=== PATIENT | female | born 1985 | race African-American/Black ===

== ENCOUNTER 2016-07-18 13:17 | Emergency (ER) | payer OTHER ==
[~2016-07-18] VITALS: Ht 170.2 cm; Wt 116.5 kg
[~2016-07-18 13:17] MED LIST: OXYC1SOL5 PO
[2016-07-18 13:20] VITALS: BP 140/63; PULSE 84; RESP 16; TEMP 98.2; O2SAT 99
--- NOTE | 2016-07-18 13:25 | PD ---
Physical Exam Time Seen by Provider: 13:22 Narrative 31yo F 8 weeks with vomiting, dizziness, and pelvic pressure since yesterday. Denies vaginal bleeding. LMP . Reports feeling dehydrated w/ dry mouth. Denies fever. VS reviewed. Patient seen in triage. Awaiting bed placement. Data Data Last Documented VS Vital Signs Date Time Temp Pulse Resp B/P Pulse Ox O2 Delivery O2 Flow Rate FiO2 07/18/16 13:20 98.2 84 16 140/63 99 MDM Supervised Visit with MIKAEL: Marce Cota July 18, 2016 13:25
[2016-07-18] MEDS ORDERED: SODIUM CHLOR 0.9% 1000 ML INJ 1,000 ML IV ONE (14:06)
[2016-07-18] MEDS ORDERED: ONDANSETRON HCL 4 MG/2 ML VIAL IVP ONE (14:15)
--- NOTE | 2016-07-18 14:15 | PD ---
HPI Chief Complaint: GI Complaint Time Seen by Provider: 14:08 Travel History International Travel<30 days: No Contact w/Intl Traveler<30days: No Traveled to known affect area: No History of Present Illness LULÚ Is a 31-year-old female estimated 8 weeks based on last menstrual period May 19 who presents for evaluation of nausea, vomiting, lightheadedness, pelvic pain. She reports that the past few days she has been having a decreased appetite. Yesterday she developed some pain/pressure in her pelvic region. Today she has been feeling increasingly nauseous and lightheaded. She had 2 episodes of vomiting. She reports that today at work she was walking and she had a brief syncopal episode in which she passed out on the ground. She is currently feeling dehydrated. She continues to have some pain in her pelvic region which she describes as a pressure sensation, worse in the left lower quadrant. She does endorse a slight clear discharge over the past few days. Denies any dysuria, flank pain, vaginal bleeding, chest pain or shortness of breath, headache, blurred vision. She has no other complaints at this time. [facility] Past Medical History Anemia: Yes Asthma: Yes (Childhood) Heart Rhythm Problems: No Cancer: No Cardiac Catheterization: No Cardiovascular Problems: No High Cholesterol: No Congestive Heart Failure: No Diabetes: No Diminished Hearing: No GERD: Yes Glaucoma: No Hepatitis: No Hiatal Hernia: Yes (GERD) Hypertension: No Reproductive: Yes (DIFFICULTIES CONCEIVING) Respiratory: Yes (ASTHMA YOUTH) Myocardial Infarction: No Thyroid Disease: No ?: LMP: 05/19/16 : 1 Para: 1 Miscarriage: 0 : 0 Ovarian Cysts: Yes Dilation and Curettage (D&C): Yes Past Surgical History Abdominal Surgery: Yes (09/01/08,"laparoscopy discovery of cervix,piece of endometriosis removed") Coronary Artery Bypass Graft: No Gynecologic Surgery: Yes (Removal of uterine polyps 05/27/13. BREAST LUMPECTOMY 2011) Pacemaker: No Other Surgery: Yes (ENDOSCOPY, COLONOSCOPY) Social History Alcohol Use: No Tobacco Use: No Substance Use: No Allergies-Medications (Allergen,Severity, Reaction): Coded Allergies: Demerol (Verified Allergy, Severe, severe teeth chattering, 07/18/16) Uncoded Allergies: NSAIDS (Allergy, Intermediate, Nausea/Vomiting, 06/13/13) Reported Meds & Prescriptions Reported Meds & Active Scripts Active Zofran (Ondansetron HCl) 4 Mg Tab 4 Mg PO Q6HR PRN Macrobid (Nitrofurantoin Monoh/Nitrofur Macro) 100 Mg Cap 100 Mg PO BID 7 Days Reported Plus Iron 29-1 mg ( Vit-Iron Carbonyl) 1 Tab Tab 1 Tab PO DAILY Review of Systems Except as stated in HPI: all other systems reviewed are Neg Physical Exam Narrative GENERAL: Well-developed well-nourished female in no acute distress SKIN: Warm and dry. HEAD: Atraumatic. Normocephalic. EYES: Pupils equal and round. No scleral icterus. No injection or drainage. ENT: No nasal bleeding or discharge. Mucous membranes pink and moist. NECK: Trachea midline. No JVD. CARDIOVASCULAR: Regular rate and rhythm. No murmur appreciated. RESPIRATORY: No accessory muscle use. Clear to auscultation. Breath sounds equal bilaterally. GASTROINTESTINAL: Abdomen soft, Mild tenderness to palpation in the suprapubic/ left lower quadrant without guarding. MUSCULOSKELETAL: No obvious deformities. Pelvic examination performed with presence of a female nurse.: There was some white discharge noted in the vaginal canal. There is a small amount of blood at the level of the cervix, noticed when taking samples for what prep/GC probe. No cervical motion tenderness. Mild suprapubic tenderness to palpation. NEUROLOGICAL: Awake and alert. No obvious cranial nerve deficits. Motor grossly within normal limits. Normal speech. Data Data Last Documented VS Vital Signs Date Time Temp Pulse Resp B/P Pulse Ox O2 Delivery O2 Flow Rate FiO2 07/18/16 14:35 18 07/18/16 14:25 87 136/89 100 Room Air 07/18/16 13:20 98.2 Orders Electrocardiogram (07/18/16 14:06) Basic Metabolic Panel (Bmp) (07/18/16 14:06) Beta Hcg (Quant/Titer) (07/18/16 14:06) Magnesium (Mg) (07/18/16 14:06) Urinalysis - C+S If Indicated (07/18/16 14:06) Blood Glucose (07/18/16 14:06) Ecg Monitoring (07/18/16 14:06) Iv Access Insert/Monitor (07/18/16 14:06) Oximetry (07/18/16 14:06) Ondansetron Inj (Zofran Inj) (07/18/16 14:15) Sodium Chlor 0.9% 1000 Ml Inj (Ns 1000 M (07/18/16 14:06) Gc And Chlamydia Pcr (07/18/16 14:09) Wet Prep Profile (07/18/16 14:09) Ed Poc Ultrasound (07/18/16 14:09) Orthostatic Vital Signs (07/18/16 14:49) Complete Blood Count With Diff (07/18/16 15:08) Complete Rh (07/18/16 15:21) Labs Laboratory Tests Test 07/18/16 07/18/16 07/18/16 14:50 15:10 15:20 Urine Color YELLOW Urine Turbidity HAZY Urine pH 6.0 Urine Specific [place] 1.026 Urine Protein NEG mg/dL Urine Glucose (UA) NEG mg/dL Urine Ketones NEG mg/dL Urine Occult Blood NEG Urine Nitrite NEG Urine Bilirubin NEG Urine Urobilinogen LESS THAN 2.0 MG/DL Urine Leukocyte Esterase TRACE Urine RBC 1 /hpf Urine WBC 2 /hpf Urine Squamous Epithelial 5 /hpf Cells Urine Bacteria RARE /hpf Urine Mucus FEW /lpf Microscopic Urinalysis Comment CULT NOT INDICATED Sodium Level 135 MEQ/L Potassium Level 4.0 MEQ/L Chloride Level 102 MEQ/L Carbon Dioxide Level 25.3 MEQ/L Anion Gap 8 MEQ/L Blood Urea Nitrogen 9 MG/DL Creatinine 0.64 MG/DL Estimat Glomerular Filtration 129 ML/MIN Rate Random Glucose 88 MG/DL Calcium Level 9.3 MG/DL Magnesium Level 2.1 MG/DL Human Chorionic Gonadotropin, 75698 MIU/ML Quant White Blood Count 7.1 TH/MM3 Red Blood Count 4.36 MIL/MM3 Hemoglobin 11.4 GM/DL Hematocrit 35.2 % Mean Corpuscular Volume 80.8 FL Mean Corpuscular Hemoglobin 26.2 PG Mean Corpuscular Hemoglobin 32.4 % Concent Red Cell Distribution Width 16.8 % Platelet Count 276 TH/MM3 Mean Platelet Volume 9.2 FL Neutrophils (%) (Auto) 64.4 % Lymphocytes (%) (Auto) 26.9 % Monocytes (%) (Auto) 7.0 % Eosinophils (%) (Auto) 1.4 % Basophils (%) (Auto) 0.3 % Neutrophils # (Auto) 4.6 TH/MM3 Lymphocytes # (Auto) 1.9 TH/MM3 Monocytes # (Auto) 0.5 TH/MM3 Eosinophils # (Auto) 0.1 TH/MM3 Basophils # (Auto) 0.0 TH/MM3 CBC Comment DIFF FINAL Differential Comment Clue Cells (Wet Prep) NONE SEEN Vaginal Trichomonas (Wet Prep) NONE SEEN Vaginal Yeast (Wet Prep) NONE SEEN Blood Type B POSITIVE Rho(D) Type POSITIVE MDM Medical Decision Making Medical Screen Exam Complete: Yes Emergency Medical Condition: Yes Medical Record Reviewed: Yes Interpretation(s) EKG NSR Orthostatic vital signs: Supine(bp 127/60, hr80) sitting(152/66, hr 81) standing (138/65 hr 82) no dizziness in any position. Urinalysis reveals trace leukocytes, rare bacteria, culture pending CBC BMP Quantitative beta hCG Differential Diagnosis Dehydration, electrolyte abnormality, ectopic , intrauterine , gastroenteritis, hyperemesis gravidarum, cystitis, pelvic inflammatory disease Narrative Course 31-year-old female last missed her period May 19 presents with a few days of decreased appetite, one day of nausea and vomiting, lightheadedness, syncope. She has some pelvic pressure as well. Bedside ultrasound performed by Dr. Wynn reveals an intrauterine estimated 9 weeks gestational age, heart tones 164. Plans for basic lab work, pelvic examination, she'll be given IV fluids and Zofran and reassessed. Pelvic examination revealed some white discharge. There was a small amount of blood at the level of the cervical os and therefore Rh type has been sent. Upon reexamination the patient feels significantly improved. Her nausea is resolved. Her lab work has been reviewed, she is Rh+. She does have a little bit of bacteria in the urine and so she'll be treated with Macrobid for asymptomatic bacteriuria. Discussed signs and symptoms of more to returning to the emergency room, she is stable for discharge and outpatient follow-up in 3 days with her [facility] as scheduled. Procedures EKG Prior to Arrival: Yes Diagnosis Primary Impression: Qualified Code: Z3A.09 - 9 weeks gestation of Additional Impressions: Nausea and vomiting Qualified Code: R11.2 - Nausea and vomiting, intractability of vomiting not specified, unspecified vomiting type Asymptomatic bacteriuria Additional Instructions: Medication as prescribed. Slowly advanced diet as tolerated. Stay well hydrated. Follow-up with [facility] in 3 days as scheduled. Return for any emergent medical conditions. Med/Other Pt SpecificInfo: Prescription(s) given Scripts Ondansetron (Zofran)4 Mg Tab4 Mg PO Q6HR PRN (NAUSEA OR VOMITING) #20 TAB Ref 0 Prov:Ian Wynn MD 07/18/16 Nitrofurantoin Monohydrate Macrocrystals (Macrobid)100 Mg Qqb647 Mg PO BID 7 Days Ref 0 Prov:Ian Wynn MD 07/18/16 Disposition: 01 DISCHARGE HOME Condition: Stable Marco Bermudez July 18, 2016 14:15
[2016-07-18 14:25] VITALS: BP 136/89; PULSE 87; RESP 18; O2SAT 100
[2016-07-18] MEDS ORDERED: PREN29TA PO (14:28)
--- NOTE | 2016-07-18 14:30 | PD ---
Physical Exam Date Seen by Provider: July 18, 2016 Time Seen by Provider: 14:28 Narrative 31-year-old female who is with LMP of May 19, 2016 came to the emergency room with lower abdominal discomfort, nausea, vomiting and syncopal episode. Patient has not seen her OB yet and has not had an ultrasound. She seen by the PA and I'm supervising him. I did a bedside ultrasound to check for the and rule out ectopic . Please refer to my procedure note. Data Data Last Documented VS Vital Signs Date Time Temp Pulse Resp B/P Pulse Ox O2 Delivery O2 Flow Rate FiO2 07/18/16 15:10 80 16 127/60 84 16 152/66 86 18 138/65 07/18/16 14:25 100 Room Air 07/18/16 13:20 98.2 Orders Electrocardiogram (07/18/16 14:06) Basic Metabolic Panel (Bmp) (07/18/16 14:06) Beta Hcg (Quant/Titer) (07/18/16 14:06) Magnesium (Mg) (07/18/16 14:06) Urinalysis - C+S If Indicated (07/18/16 14:06) Blood Glucose (07/18/16 14:06) Ecg Monitoring (07/18/16 14:06) Iv Access Insert/Monitor (07/18/16 14:06) Oximetry (07/18/16 14:06) Ondansetron Inj (Zofran Inj) (07/18/16 14:15) Sodium Chlor 0.9% 1000 Ml Inj (Ns 1000 M (07/18/16 14:06) Gc And Chlamydia Pcr (07/18/16 14:09) Wet Prep Profile (07/18/16 14:09) Ed Poc Ultrasound (07/18/16 14:09) Orthostatic Vital Signs (07/18/16 14:49) Complete Blood Count With Diff (07/18/16 15:08) Complete Rh (07/18/16 15:21) Labs Laboratory Tests Test 07/18/16 07/18/16 07/18/16 14:50 15:10 15:20 Urine Color YELLOW Urine Turbidity HAZY Urine pH 6.0 Urine Specific [place] 1.026 Urine Protein NEG mg/dL Urine Glucose (UA) NEG mg/dL Urine Ketones NEG mg/dL Urine Occult Blood NEG Urine Nitrite NEG Urine Bilirubin NEG Urine Urobilinogen LESS THAN 2.0 MG/DL Urine Leukocyte Esterase TRACE Urine RBC 1 /hpf Urine WBC 2 /hpf Urine Squamous Epithelial 5 /hpf Cells Urine Bacteria RARE /hpf Urine Mucus FEW /lpf Microscopic Urinalysis Comment CULT NOT INDICATED Sodium Level 135 MEQ/L Potassium Level 4.0 MEQ/L Chloride Level 102 MEQ/L Carbon Dioxide Level 25.3 MEQ/L Anion Gap 8 MEQ/L Blood Urea Nitrogen 9 MG/DL Creatinine 0.64 MG/DL Estimat Glomerular Filtration 129 ML/MIN Rate Random Glucose 88 MG/DL Calcium Level 9.3 MG/DL Magnesium Level 2.1 MG/DL Human Chorionic Gonadotropin, 75193 MIU/ML Quant White Blood Count 7.1 TH/MM3 Red Blood Count 4.36 MIL/MM3 Hemoglobin 11.4 GM/DL Hematocrit 35.2 % Mean Corpuscular Volume 80.8 FL Mean Corpuscular Hemoglobin 26.2 PG Mean Corpuscular Hemoglobin 32.4 % Concent Red Cell Distribution Width 16.8 % Platelet Count 276 TH/MM3 Mean Platelet Volume 9.2 FL Neutrophils (%) (Auto) 64.4 % Lymphocytes (%) (Auto) 26.9 % Monocytes (%) (Auto) 7.0 % Eosinophils (%) (Auto) 1.4 % Basophils (%) (Auto) 0.3 % Neutrophils # (Auto) 4.6 TH/MM3 Lymphocytes # (Auto) 1.9 TH/MM3 Monocytes # (Auto) 0.5 TH/MM3 Eosinophils # (Auto) 0.1 TH/MM3 Basophils # (Auto) 0.0 TH/MM3 CBC Comment DIFF FINAL Differential Comment Clue Cells (Wet Prep) NONE SEEN Vaginal Trichomonas (Wet Prep) NONE SEEN Vaginal Yeast (Wet Prep) NONE SEEN Chlamydia trachomatis DNA NOT DETECTED (PCR) Neisseria gonorrhoeae DNA NOT DETECTED (PCR) Blood Type B POSITIVE Rho(D) Type POSITIVE MDM Supervised Visit with MIKAEL: Yes Procedures Procedure Narrative Emergency Department Pelvic ultrasound was performed with patient consent. The curvilinear probe was used in the transverse and sagittal views within the suprapubic region revealing single, live intrauterine . heart rate was 164 bpm. See this measures 9 week by crown-rump length. Scripts Ondansetron (Zofran)4 Mg Tab4 Mg PO Q6HR PRN (NAUSEA OR VOMITING) #20 TAB Ref 0 Prov:Kingsley,Shravanti R. MD 07/18/16 Nitrofurantoin Monohydrate Macrocrystals (Macrobid)100 Mg Hes306 Mg PO BID 7 Days Ref 0 Prov:Ian Wynn MD 07/18/16 Ian Wynn MD July 18, 2016 14:30
[2016-07-18 15:10] VITALS: BP_SYST 127; BP_SYST 138; BP_SYST 152; BP_DIAS 60; BP_DIAS 65; BP_DIAS 66; RESP 16; RESP 18
[2016-07-18 15:10] LABS: BACTERIA, URINE RARE /hpf; BLOOD, URINE NEG (NEG); COMMENT (UR) CULT NOT INDICATED; CULTURE IF INDICATED CULT NOT INDICATED; GLUCOSE,URINE NEG (NEG); KETONE, URINE NEG (NEG); MUCUS URINE FEW /lpf (OCC); NITRITE,URINE NEG (NEG); SQUAMOUS EPITHELIAL CELL URINE 5 /hpf (0-5); URINE COLOR YELLOW (YELLW/STRAW)
[2016-07-18 15:23] LABS: BICARBONATE 25.3 MEQ/L (21.0-32.0); MAGNESIUM 2.1 MG/DL (1.5-2.5)
[2016-07-18 15:33] LABS: AUTOMATED NEUTROPHIL # 4.6 TH/MM3 (1.8-7.7); BASOPHIL % 0.3 % (0.0-2.0); EOSINOPHIL # 0.1 TH/MM3 (0-0.4); EOSINOPHIL % 1.4 % (0.0-4.0); HEMATOCRIT 35.2 % (35.0-46.0); HEMO FLAGS DIFF FINAL; LYMPH % 26.9 % (9.0-44.0); LYMPHOCYTE # 1.9 TH/MM3 (1.0-4.8); MEAN CELL VOLUME 80.8 FL (80.0-100.0); MEAN CORPUSCULAR HEMOGLOBIN 26.2 PG (27.0-34.0); MEAN CORPUSCULAR HGB CONC 32.4 % (32.0-36.0); NEUT % 64.4 % (16.0-70.0); PLATELET COUNT 276 TH/MM3 (150-450); RED BLOOD COUNT 4.36 MIL/MM3 (4.00-5.30); RED CELL DISTRIBUTION WIDTH 16.8 % (11.6-17.2); WHITE BLOOD COUNT 7.1 TH/MM3 (4.0-11.0)
[2016-07-18] MEDS ORDERED: MACR100C2 PO (15:47)
[2016-07-18] MEDS ORDERED: ZOFR4TAB PO (15:47)
[2016-07-18 18:25] LABS: CHLAMYDIA PCR NOT DETECTED (NOT DETECT); NEISSERIA PCR NOT DETECTED (NOT DETECT)
--- NOTE | 2016-07-19 06:00 | EKG ---
Date Performed: 07/18/2016 Time Performed: 14:32:46 PTAGE: 31 years EKG: Sinus rhythm NORMAL ECG PREVIOUS TRACING : 10/11/2009 19.59 Compared to prior tracing no significant change DOCTOR: Rakel Berg Interpretating Date/Time 07/19/2016 05:58:07
== END 2016-07-18 16:27 | disposition home or self-care (01) ==
LOC: NEPD 13:17
DX: O21.0 Mild hyperemesis gravidarum (principal); R82.71 Bacteriuria; Z3A.09 9 weeks gestation of pregnancy
CPT/HCPCS: 80048; 81001; 83735; 84702; 85025; 87210; 87491; 87591; 93005; 96361; 96374; 99284; J2405; J7030

== ENCOUNTER 2016-09-10 16:52 | Emergency (ER) | payer OTHER ==
[~2016-09-10] VITALS: Ht 170.2 cm; Wt 120.0 kg
[~2016-09-10 16:52] MED LIST changes: +MACR100C2 PO; -OXYC1SOL5 PO; +PREN29TA PO; +ZOFR4TAB PO
[2016-09-10 16:53] VITALS: BP 132/58; PULSE 118; RESP 20; TEMP 99.4; O2SAT 99
[2016-09-10] MEDS ORDERED: SODIUM CHLOR 0.9% 1000 ML INJ 1,000 ML IV SCH (17:09)
--- NOTE | 2016-09-10 17:10 | PD ---
HPI Chief Complaint: General Weakness Time Seen by Provider: 17:10 Travel History International Travel<30 days: No Contact w/Intl Traveler<30days: No Traveled to known affect area: No History of Present Illness HPI 31-year-old female who is 16 weeks gestation, followed by Dr. Jameson, presents to the emergency department for evaluation of low back pain and leg pain. She recalls no injury. That she feels weak. Denies any recent illnesses, fever, or chills. Denies any urinary symptoms. No abdominal pain or cramping. No vaginal bleeding or discharge. Patient states however today she has not felt as many flutters from the developing fetus as she usually does. She did try drinking orange juice with no improvement. Patient has no other symptoms to report at this time. PFSH Past Medical History Anemia: Yes Asthma: Yes (Childhood) Heart Rhythm Problems: No Cancer: No Cardiac Catheterization: No Cardiovascular Problems: No High Cholesterol: No Congestive Heart Failure: No Diabetes: No Diminished Hearing: No GERD: Yes Glaucoma: No Hepatitis: No Hiatal Hernia: Yes Heparin Induced Thrombocytopen: No Hypertension: No Medical other: No Reproductive: Yes (DIFFICULTIES CONCEIVING) Respiratory: Yes (ASTHMA YOUTH) Myocardial Infarction: No Thyroid Disease: No Influenza Vaccination: No ?: LMP: 05/19/16 : 4 Para: 2 Miscarriage: 1 : 0 Ovarian Cysts: Yes Dilation and Curettage (D&C): Yes Past Surgical History Abdominal Surgery: Yes (09/01/08,"laparoscopy discovery of cervix,piece of endometriosis removed") Coronary Artery Bypass Graft: No Gynecologic Surgery: Yes (Removal of uterine polyps 05/27/13. BREAST LUMPECTOMY 2011) Pacemaker: No Other Surgery: Yes (ENDOSCOPY, COLONOSCOPY) Family History Family Myocardial Infarction: No Social History Alcohol Use: No Tobacco Use: No Substance Use: No Allergies-Medications (Allergen,Severity, Reaction): Coded Allergies: Demerol (Verified Allergy, Severe, severe teeth chattering, 07/18/16) Uncoded Allergies: NSAIDS (Allergy, Intermediate, Nausea/Vomiting, 06/13/13) Reported Meds & Prescriptions Reported Meds & Active Scripts Active Keflex (Cephalexin) 500 Mg Cap 500 Mg PO Q12H 7 Days Zofran (Ondansetron HCl) 4 Mg Tab 4 Mg PO Q6HR PRN Macrobid (Nitrofurantoin Monoh/Nitrofur Macro) 100 Mg Cap 100 Mg PO BID 7 Days Reported Plus Iron 29-1 mg ( Vit-Iron Carbonyl) 1 Tab Tab 1 Tab PO DAILY Review of Systems Except as stated in HPI: all other systems reviewed are Neg Physical Exam Narrative GENERAL: Well-nourished female patient, in no acute distress SKIN: Focused skin assessment warm/dry. HEAD: Atraumatic. Normocephalic. EYES: Pupils equal and round. No scleral icterus. No injection or drainage. ENT: No nasal bleeding or discharge. Mucous membranes pink and moist. NECK: Trachea midline. No JVD. CARDIOVASCULAR: Regular rate and rhythm. No murmur appreciated. RESPIRATORY: No accessory muscle use. Clear to auscultation. Breath sounds equal bilaterally. GASTROINTESTINAL: Abdomen soft, non-tender, nondistended. Hepatic and splenic margins not palpable. MUSCULOSKELETAL: No obvious deformities. No clubbing. No cyanosis. No edema. No spinal tenderness. NEUROLOGICAL: Awake and alert. No obvious cranial nerve deficits. Motor grossly within normal limits. Normal speech. PSYCHIATRIC: Appropriate mood and affect; insight and judgment normal. Data Data Last Documented VS Vital Signs Date Time Temp Pulse Resp B/P Pulse Ox O2 Delivery O2 Flow Rate FiO2 09/10/16 20:51 88 16 112/58 98 09/10/16 18:20 Room Air 09/10/16 16:53 99.4 Orders Beta Hcg (Quant/Titer) (09/10/16 17:09) Complete Blood Count With Diff (09/10/16 17:09) Comprehensive Metabolic Panel (09/10/16 17:09) Prothrombin Time / Inr (Pt) (09/10/16 17:09) Act Partial Throm Time (Ptt) (09/10/16 17:09) Urinalysis - C+S If Indicated (09/10/16 17:09) Iv Access Insert/Monitor (09/10/16 17:09) Ecg Monitoring (09/10/16 17:09) Oximetry (09/10/16 17:09) Sodium Chlor 0.9% 1000 Ml Inj (Ns 1000 M (09/10/16 17:09) Sodium Chloride 0.9% Flush (Ns Flush) (09/10/16 17:15) Ed Urine Pregnancytest Poc (09/10/16 17:09) Heart Tones (09/10/16 18:31) Sodium Chlor 0.9% 1000 Ml Inj (Ns 1000 M (09/10/16 18:45) Labs Laboratory Tests Test 09/10/16 09/10/16 17:35 17:45 White Blood Count 7.1 TH/MM3 Red Blood Count 4.19 MIL/MM3 Hemoglobin 10.8 GM/DL Hematocrit 34.4 % Mean Corpuscular Volume 82.2 FL Mean Corpuscular Hemoglobin 25.8 PG Mean Corpuscular Hemoglobin 31.4 % Concent Red Cell Distribution Width 15.7 % Platelet Count 223 TH/MM3 Mean Platelet Volume 9.2 FL Neutrophils (%) (Auto) 70.6 % Lymphocytes (%) (Auto) 22.7 % Monocytes (%) (Auto) 5.5 % Eosinophils (%) (Auto) 1.0 % Basophils (%) (Auto) 0.2 % Neutrophils # (Auto) 5.0 TH/MM3 Lymphocytes # (Auto) 1.6 TH/MM3 Monocytes # (Auto) 0.4 TH/MM3 Eosinophils # (Auto) 0.1 TH/MM3 Basophils # (Auto) 0.0 TH/MM3 CBC Comment DIFF FINAL Differential Comment Prothrombin Time 10.5 SEC Prothromb Time International 1.0 RATIO Ratio Activated Partial 28.5 SEC Thromboplast Time Sodium Level 138 MEQ/L Potassium Level 3.4 MEQ/L Chloride Level 104 MEQ/L Carbon Dioxide Level 27.0 MEQ/L Anion Gap 7 MEQ/L Blood Urea Nitrogen 6 MG/DL Creatinine 0.66 MG/DL Estimat Glomerular Filtration 125 ML/MIN Rate Random Glucose 88 MG/DL Calcium Level 9.1 MG/DL Total Bilirubin 0.2 MG/DL Aspartate Amino Transf 7 U/L (AST/SGOT) Alanine Aminotransferase 18 U/L (ALT/SGPT) Alkaline Phosphatase 75 U/L Total Protein 6.8 GM/DL Albumin 2.5 GM/DL Human Chorionic Gonadotropin, 64352 MIU/ML Quant Urine Color YELLOW Urine Turbidity CLEAR Urine pH 6.5 Urine Specific [place] 1.022 Urine Protein TRACE mg/dL Urine Glucose (UA) NEG mg/dL Urine Ketones 10 mg/dL Urine Occult Blood MOD Urine Nitrite NEG Urine Bilirubin NEG Urine Urobilinogen LESS THAN 2.0 MG/DL Urine Leukocyte Esterase NEG Urine RBC /hpf Urine WBC 1 /hpf Urine Squamous Epithelial 2 /hpf Cells Urine Mucus FEW /lpf Microscopic Urinalysis Comment CULT NOT INDICATED MDM Medical Decision Making Medical Screen Exam Complete: Yes Emergency Medical Condition: Yes Medical Record Reviewed: Yes Differential Diagnosis Low back strain versus cystitis versus pyelonephritis versus renal calculi versus electrolyte abnormality Narrative Course 31-year-old female presents to the emergency department for evaluation. Patient appears without distress. Her vital signs are stable. Initially patient is tachycardic however after IV fluid, heart rate normalizes at 88 bpm. CBC is without acute concern. CMP is also without acute concern. Beta hCG is 20,284. Urinalysis is with 10 ketones, moderate occult blood, innumerable RBC, a few mucus. Patient will be treated for hemorrhagic cystitis and this very well could be the cause of her low back pain, although at this point, renal calculi cannot be completely ruled out as we will not be doing a CT exam with normal kidney function identified and no significant CVA tenderness. Bedside ultrasound is performed by my attending physician with an IUP identified , actively moving, and with an active heartbeat. This offered patient some reassurance however we have encouraged her follow up with her primary care provider as well as her [facility]U[facility]. She agrees to return immediately with any acute worsening symptoms. Diagnosis Primary Impression: Low back pain Qualified Code: M54.5 - Bilateral low back pain without sciatica, unspecified chronicity Additional Impressions: Hematuria Qualified Code: Z3A.16 - 16 weeks gestation of Referrals: [place] [facility] Primary Care Physician Patient Instructions: General Instructions, Hematuria (ED), Low Back Strain (ED ) Additional Instructions: Rest Maintain adequate oral hydration Tylenol as directed on the package as needed for pain Follow-up with your JOB RECRUITER Return immediately with any acute worsening of symptoms Med/Other Pt SpecificInfo: Prescription(s) given Scripts Cephalexin (Keflex)500 Mg Syj600 Mg PO Q12H 7 Days Ref 0 Prov:Elza Cordoba 09/10/16 Disposition: 01 DISCHARGE HOME Condition: Stable Elza Cordoba Sep 10, 2016 17:10
[2016-09-10] MEDS ORDERED: SODIUM CHLORIDE 0.9% FLUSH 10 ML FLUSH IV FLUSH PRN (17:15)
[2016-09-10 18:08] LABS: BASOPHIL % 0.2 % (0.0-2.0); EOSINOPHIL # 0.1 TH/MM3 (0-0.4); HEMATOCRIT 34.4 % (35.0-46.0); HEMO FLAGS DIFF FINAL; LYMPH % 22.7 % (9.0-44.0); LYMPHOCYTE # 1.6 TH/MM3 (1.0-4.8); MEAN CELL VOLUME 82.2 FL (80.0-100.0); MEAN CORPUSCULAR HEMOGLOBIN 25.8 PG (27.0-34.0); MEAN CORPUSCULAR HGB CONC 31.4 % (32.0-36.0); MONO % 5.5 % (0.0-8.0); NEUT % 70.6 % (16.0-70.0); PLATELET COUNT 223 TH/MM3 (150-450); RED BLOOD COUNT 4.19 MIL/MM3 (4.00-5.30); RED CELL DISTRIBUTION WIDTH 15.7 % (11.6-17.2); WHITE BLOOD COUNT 7.1 TH/MM3 (4.0-11.0)
[2016-09-10 18:11] LABS: BLOOD, URINE MOD (NEG); COMMENT (UR) CULT NOT INDICATED; CULTURE IF INDICATED CULT NOT INDICATED; GLUCOSE,URINE NEG (NEG); KETONE, URINE 10 mg/dL (NEG); MUCUS URINE FEW /lpf (OCC); NITRITE,URINE NEG (NEG); PH, URINE 6.5 (5.0-8.5); SQUAMOUS EPITHELIAL CELL URINE 2 /hpf (0-5); URINE COLOR YELLOW (YELLW/STRAW)
[2016-09-10 18:14] LABS: APTT (PATIENT) 28.5 SEC (24.3-30.1); PROTHROMBIN TIME - PATIENT 10.5 SEC (9.8-11.6)
[2016-09-10 18:20] VITALS: PULSE 100; PULSE 102; RESP 18; O2SAT 100
[2016-09-10 18:33] LABS: ALT (GPT) 18 U/L (10-53); ANION GAP 7 MEQ/L (5-15); AST (GOT) 7 U/L (15-37); BLOOD UREA NITROGEN 6 MG/DL (7-18); CHLORIDE 104 MEQ/L (98-107); GLOMERULAR FILTRATION RATE 125 ML/MIN (>89); POTASSIUM 3.4 MEQ/L (3.5-5.1); SODIUM (NA) 138 MEQ/L (136-145)
[2016-09-10] MEDS ORDERED: SODIUM CHLOR 0.9% 1000 ML INJ 1,000 ML IV ONE (18:45)
[2016-09-10 18:49] LABS: ALKALINE PHOSPHATASE 75 U/L (45-117); BETA HCG QUANT 20284 MIU/ML (0-5); TOTAL BILIRUBIN ADULT 0.2 MG/DL (0.2-1.0)
[2016-09-10] MEDS ORDERED: CEPH-460 PO (19:22)
[2016-09-10 20:51] VITALS: BP 112/58
== END 2016-09-10 20:52 | disposition home or self-care (01) ==
LOC: NEPC 16:52
DX: O26.892 Other specified pregnancy related conditions, second trimester (principal); M54.5 Low back pain; R31.9 Hematuria, unspecified; Z3A.16 16 weeks gestation of pregnancy
CPT/HCPCS: 80053; 81001; 84702; 84703; 85025; 85610; 85730; 99284; J7030

== ENCOUNTER 2016-10-09 10:34 | Emergency (ER) | payer OTHER ==
[~2016-10-09] VITALS: Ht 170.2 cm; Wt 110.0 kg
[~2016-10-09 10:34] MED LIST changes: +CEPH-460 PO
[2016-10-09 10:37] VITALS: BP 134/90; PULSE 87; RESP 15; TEMP 97.8; O2SAT 100
[2016-10-09 10:54] VITALS: BP 131/60; PULSE 98; RESP 28; O2SAT 100
[2016-10-09 11:54] LABS: AUTOMATED NEUTROPHIL # 4.6 TH/MM3 (1.8-7.7); BASOPHIL % 0.4 % (0.0-2.0); EOSINOPHIL # 0.1 TH/MM3 (0-0.4); HEMO FLAGS DIFF FINAL; LYMPHOCYTE # 2.4 TH/MM3 (1.0-4.8); MEAN CELL VOLUME 83.1 FL (80.0-100.0); MEAN CORPUSCULAR HEMOGLOBIN 26.6 PG (27.0-34.0); MONO % 7.1 % (0.0-8.0); NEUT % 60.5 % (16.0-70.0); PLATELET COUNT 249 TH/MM3 (150-450); RED BLOOD COUNT 4.33 MIL/MM3 (4.00-5.30); RED CELL DISTRIBUTION WIDTH 14.8 % (11.6-17.2); WHITE BLOOD COUNT 7.6 TH/MM3 (4.0-11.0)
[2016-10-09 12:07] LABS: ALKALINE PHOSPHATASE 81 U/L (45-117); TOTAL BILIRUBIN ADULT 0.3 MG/DL (0.2-1.0)
[2016-10-09 12:08] LABS: ALT (GPT) 15 U/L (10-53); ANION GAP 7 MEQ/L (5-15); AST (GOT) 30 U/L (15-37); BICARBONATE 25.6 MEQ/L (21.0-32.0); BLOOD UREA NITROGEN 6 MG/DL (7-18); CHLORIDE 103 MEQ/L (98-107); GLOMERULAR FILTRATION RATE 137 ML/MIN (>89); POTASSIUM 4.4 MEQ/L (3.5-5.1); SODIUM (NA) 136 MEQ/L (136-145)
--- NOTE | 2016-10-09 12:19 | RADRPT ---
EXAM DATE/TIME: 10/09/2016 11:18 [facility] COMPARISON: No previous studies available for comparison. INDICATIONS : Bilateral leg swelling. MEDICAL HISTORY : . Asthma. GERD. SURGICAL HISTORY : Dilation and currettage. Removal uterine polyp. Breast lumpectomy. Endoscopy. Colonoscopy. ENCOUNTER: Initial ACUITY: 3 days PAIN SCORE: 1/10 LOCATION: Bilateral legs. TECHNIQUE: Venous ultrasound of the left and right leg was performed from the inguinal ligament to the proximal calf. Real-time, color Doppler and spectral tracing, compression and augmentation techniques were us ed. FINDINGS: RIGHT LEG: There is normal compressibility of the deep venous system from the inguinal region to the proximal ca lf. No echogenic clot is seen in the lumen of the common femoral, femoral, popliteal, and posterior tibial veins. There is a normal response of the venous system to proximal and distal augmentation an d respiration. LEFT LEG: There is normal compressibility of the deep venous system from the inguinal region to the proximal ca lf. No echogenic clot is seen in the lumen of the common femoral, femoral, popliteal, and posterior tibial veins. There is a normal response of the venous system to proximal and distal augmentation an d respiration. CONCLUSION: 1. No sonographic evidence for lower extremity DVT. Giovani Otero MD on October 09, 2016 at 12:14 Board Certified Radiologist. This report was verified electronically.
--- NOTE | 2016-10-09 12:53 | RADRPT ---
EXAM DATE/TIME: 10/09/2016 12:12 [facility] COMPARISON: No previous studies available for comparison. INDICATIONS : Short of breath, chest pain. MEDICAL HISTORY : . Asthma SURGICAL HISTORY : None. ENCOUNTER: Initial ACUITY: 1 day PAIN SCORE: 8/10 LOCATION: Bilateral chest FINDINGS: A single view of the chest demonstrates the lungs to be symmetrically aerated without evidence of mas s, infiltrate or effusion. The cardiomediastinal contours are unremarkable. Osseous structures are intact. CONCLUSION: Normal examination. Maldonado Saunders Jr., MD on October 09, 2016 at 12:52 Board Certified Radiologist. This report was verified electronically.
[2016-10-09] MEDS ORDERED: RESP: ALBUTEROL CONC 2.5 MG/0.5 ML NEB NEB ONE (13:15)
[2016-10-09 15:57] VITALS: BP 125/58; PULSE 79; RESP 19; O2SAT 99
--- NOTE | 2016-10-09 16:03 | RADRPT ---
EXAM DATE/TIME: 10/09/2016 15:00 [place] COMPARISON: CHEST SINGLE AP, October 09, 2016, 12:12. INDICATIONS : Dyspnea. DOSE: 1 mCi Tc99m Labeled MAA IV MEDICAL HISTORY : . Asthma. SURGICAL HISTORY : Removal of uterine polyps. BREAST LUMPECTOMY 2011 ENCOUNTER: Initial ACUITY: 1 day PAIN SCALE: 0/10 LOCATION: chest TECHNIQUE: The patient was injected with MAA, and eight-view perfusion scan was performed. FINDINGS: PERFUSION: There is a homogenous pattern of radiotracer uptake throughout both lungs. CONCLUSION: Normal examination. Deandre Luo MD on October 09, 2016 at 16:01 Board Certified Radiologist. This report was verified electronically.
[2016-10-09] MEDS ORDERED: PRED20 PO (16:13)
[2016-10-09] MEDS ORDERED: ALBUAER3 INH (16:13)
--- NOTE | 2016-10-09 16:13 | PD ---
HPI Chief Complaint: Chest Pain Time Seen by Provider: 10:59 Travel History International Travel<30 days: No Contact w/Intl Traveler<30days: No Traveled to known affect area: No History of Present Illness HPI This is a 31-year-old female who is 5 months who presents to the emergency department with about a month of lightheadedness and intermittent dizziness with 2 days of chest discomfort in the middle of her chest, worse with deep breaths, sharp, associated with dyspnea on exertion which is new for her. She says she does have a history of asthma but hasn't had trouble with it in 7 years and she hasn't had a cough or rhinorrhea and denies any fever. She denies any leg swelling. PFSH Past Medical History Anemia: Yes Asthma: Yes (Childhood) Heart Rhythm Problems: No Cancer: No Cardiac Catheterization: No Cardiovascular Problems: No High Cholesterol: No Congestive Heart Failure: No Diabetes: No Diminished Hearing: No GERD: Yes Glaucoma: No Hepatitis: No Hiatal Hernia: Yes Heparin Induced Thrombocytopen: No Hypertension: No Medical other: No Reproductive: Yes (DIFFICULTIES CONCEIVING) Respiratory: Yes (asthma) Myocardial Infarction: No Thyroid Disease: No ?: : 4 Para: 2 Miscarriage: 1 : 0 Ovarian Cysts: Yes Dilation and Curettage (D&C): Yes Past Surgical History Abdominal Surgery: Yes (09/01/08,"laparoscopy discovery of cervix,piece of endometriosis removed") Coronary Artery Bypass Graft: No Gynecologic Surgery: Yes (Removal of uterine polyps 05/27/13. BREAST LUMPECTOMY 2011) Pacemaker: No Other Surgery: Yes (ENDOSCOPY, COLONOSCOPY) Family History Family Myocardial Infarction: No Social History Alcohol Use: No Tobacco Use: No Substance Use: No Allergies-Medications (Allergen,Severity, Reaction): Coded Allergies: Demerol (Verified Allergy, Severe, severe teeth chattering, 07/18/16) Uncoded Allergies: NSAIDS (Allergy, Intermediate, Nausea/Vomiting, 06/13/13) Reported Meds & Prescriptions Reported Meds & Active Scripts Active Keflex (Cephalexin) 500 Mg Cap 500 Mg PO Q12H 7 Days Zofran (Ondansetron HCl) 4 Mg Tab 4 Mg PO Q6HR PRN Macrobid (Nitrofurantoin Monoh/Nitrofur Macro) 100 Mg Cap 100 Mg PO BID 7 Days Reported Plus Iron 29-1 mg ( Vit-Iron Carbonyl) 1 Tab Tab 1 Tab PO DAILY Review of Systems Except as stated in HPI: all other systems reviewed are Neg Physical Exam Narrative GENERAL:Well appearing, no acute distress SKIN: Focused skin assessment warm and dry. HEAD: Atraumatic. Normocephalic. EYES: Pupils equal and round. No injection or drainage. ENT: Moist mucous membranes NECK: Trachea midline. CARDIOVASCULAR: Regular rate and rhythm. No murmur appreciated. RESPIRATORY: Clear to auscultation. Breath sounds equal bilaterally. GASTROINTESTINAL: Abdomen soft, non-tender, nondistended. MUSCULOSKELETAL: No obvious deformities. NEUROLOGICAL: Awake and alert. No obvious cranial nerve deficits. Moving all extremities. PSYCHIATRIC: Appropriate mood and affect; insight and judgment normal. Data Data Last Documented VS Vital Signs Date Time Temp Pulse Resp B/P Pulse Ox O2 Delivery O2 Flow Rate FiO2 10/09/16 15:57 79 19 125/58 99 Room Air 10/09/16 10:37 97.8 Orders Complete Blood Count With Diff (10/09/16 11:17) Comprehensive Metabolic Panel (10/09/16 11:17) ^ Insert Iv (10/09/16 11:17) Us Leg Venous Doppler Bilat (10/09/16 ) Chest, Single Ap (10/09/16 ) Electrocardiogram (10/09/16 ) Albuterol Concentrated Neb (Albuterol Co (10/09/16 13:15) Lung Scan - Perfusion (10/09/16 ) Labs Laboratory Tests Test 10/09/16 11:32 White Blood Count 7.6 TH/MM3 Red Blood Count 4.33 MIL/MM3 Hemoglobin 11.5 GM/DL Hematocrit 36.0 % Mean Corpuscular Volume 83.1 FL Mean Corpuscular Hemoglobin 26.6 PG Mean Corpuscular Hemoglobin 32.0 % Concent Red Cell Distribution Width 14.8 % Platelet Count 249 TH/MM3 Mean Platelet Volume 9.3 FL Neutrophils (%) (Auto) 60.5 % Lymphocytes (%) (Auto) 31.0 % Monocytes (%) (Auto) 7.1 % Eosinophils (%) (Auto) 1.0 % Basophils (%) (Auto) 0.4 % Neutrophils # (Auto) 4.6 TH/MM3 Lymphocytes # (Auto) 2.4 TH/MM3 Monocytes # (Auto) 0.5 TH/MM3 Eosinophils # (Auto) 0.1 TH/MM3 Basophils # (Auto) 0.0 TH/MM3 CBC Comment DIFF FINAL Differential Comment Sodium Level 136 MEQ/L Potassium Level 4.4 MEQ/L Chloride Level 103 MEQ/L Carbon Dioxide Level 25.6 MEQ/L Anion Gap 7 MEQ/L Blood Urea Nitrogen 6 MG/DL Creatinine 0.61 MG/DL Estimat Glomerular Filtration 137 ML/MIN Rate Random Glucose 69 MG/DL Calcium Level 9.2 MG/DL Total Bilirubin 0.3 MG/DL Aspartate Amino Transf 30 U/L (AST/SGOT) Alanine Aminotransferase 15 U/L (ALT/SGPT) Alkaline Phosphatase 81 U/L Total Protein 7.8 GM/DL Albumin 2.8 GM/DL [facility] Medical Decision Making Medical Screen Exam Complete: Yes Emergency Medical Condition: Yes Interpretation(s) Afebrile, no tachycardia, normotensive No leukocytosis Electrolytes are reassuring Chest x-ray, lower extremity ultrasound and VQ scan are reassuring. Differential Diagnosis Pulmonary embolism, congestive heart failure, asthma, electrolyte abnormality, dehydration Narrative Course This is a 31-year-old female who is 5 months who presents to the emergency department with increasing shortness of breath, dyspnea on exertion and some chest discomfort which has been going on for 2 days. Her symptoms concern me for possible pulmonary embolism. She is placed on a monitor and an IV was established. Labs were obtained which are reassuring. Chest x-ray is unremarkable with no evidence of congestive heart failure. Ultrasound was obtained which was reassuring and negative for DVT. VQ scan was obtained which was reassuring as well. Patient was given a bronchodilator treatment and feels little bit better. I think it's reasonable to treat her for reactive airway disease and I think she can safely be discharged home and life threats have been excluded. Diagnosis Primary Impression: Reactive airway disease Qualified Code: J45.20 - Reactive airway disease, mild intermittent, uncomplicated Patient Instructions: General Instructions Additional Instructions: If you develop severe shortness of breath, chest pain, or difficulty breathing return to the emergency department. Use albuterol every 4 hours for the next 2 days. Then use as needed for wheezing. Complete your course of steroids. Follow up with your primary care physician in 2-3 days if your symptoms have not improved. Med/Other Pt SpecificInfo: Prescription(s) given Scripts Albuterol 8.5 GM Inh (Proair Hfa 8.5 GM Inh)90 Mcg/Act Aer2 Puff INH Q4-6H PRN ( SHORTNESS OF BREATH) #1 INHALER 108 mcg/actuation Prov:Alyssia Lopez MD 10/09/16 Prednisone 20 Mg Tab40 Mg PO DAILY 4 Days Prov:Alyssia Lopez MD 10/09/16 Disposition: 01 DISCHARGE HOME Condition: Stable Alyssia Lopez MD Oct 09, 2016 16:13
--- NOTE | 2016-10-10 14:31 | EKG ---
Date Performed: 10/09/2016 Time Performed: 10:54:57 PTAGE: 31 years EKG: Sinus rhythm NORMAL ECG Compared to prior tracing no significant change PREVIOUS TRACING : 07/18/2016 14.32 DOCTOR: Shawn Sandoval Interpretating Date/Time 10/10/2016 14:31:02
== END 2016-10-09 16:47 | disposition home or self-care (01) ==
LOC: NEPE 10:34
DX: J45.20 Mild intermittent asthma, uncomplicated (principal); O26.92 Pregnancy related conditions, unspecified, second trimester; Z3A.00 Weeks of gestation of pregnancy not specified
CPT/HCPCS: 71010; 78580; 80053; 85025; 93005; 93970; 94664; 99285; A9540; J7611

== ENCOUNTER 2016-12-02 02:23 | Emergency (ER) | payer OTHER ==
[~2016-12-02 02:23] MED LIST changes: +ALBUAER3 INH; +PRED20 PO
--- NOTE | 2016-12-02 03:41 | PD ---
HPI Chief Complaint Abdominal and back pain Date Seen: Dec 02, 2016 Time Seen: 03:30 Travel History International Travel<30 Days: No Contact w/Intl Traveler<30Days: No Known Affected Area: No History of Present Illness HPI 31-year-old black female [address] Jameson for care who complains of abdominal and back pain, no leaking or bleeding heart rate tracing is reactive and she is no contractions on the monitor Weeks Gestation: 28 Para: 2 : 4 Last Menstrual Period: Dec 02, 2016 Miscarriage: 1 History Obstetric History Obstetric History 2 vaginal deliveries and one early loss In this patient's history describes blood in her urine throughout her Social History Alcohol Use: No Tobacco Use: No Substance Abuse: No Allergies-Medications (Allergen,Severity, Reaction): Coded Allergies: meperidine (Unverified Allergy, Severe, severe teeth chattering, 10/24/16) Uncoded Allergies: NSAIDS (Allergy, Intermediate, Nausea/Vomiting, 06/13/13) Home Meds Active Scripts Albuterol 8.5 GM Inh (Proair Hfa 8.5 GM Inh) 90 Mcg/Act Aer, 2 PUFF INH Q4-6H Y for SHORTNESS OF BREATH, #1 INHALER 108 mcg/actuation Prov:Alyssia Lopez MD 10/09/16 Prednisone (Prednisone) 20 Mg Tab, 40 MG PO DAILY for 4 Days, TAB Prov:Alyssia Lopez MD 10/09/16 Cephalexin (Keflex) 500 Mg Cap, 500 MG PO Q12H for Infection for 7 Days, CAP 0 Refills Prov:Elza Cordoba 09/10/16 Ondansetron (Zofran) 4 Mg Tab, 4 MG PO Q6HR Y for NAUSEA OR VOMITING, #20 TAB 0 Refills Prov:Ian Wynn MD 07/18/16 Nitrofurantoin Monohydrate Macrocrystals (Macrobid) 100 Mg Cap, 100 MG PO BID for Infection for 7 Days, CAP 0 Refills Prov:Ian Wynn MD 07/18/16 Reported Medications Vit-Iron Carbonyl ( Plus Iron 29-1 mg) 1 Tab Tab, 1 TAB PO DAILY for Nutritional Supplement, #30 TAB 0 Refills 07/18/16 Review of Systems General / Constitutional: No: Fever, Weight Gain, Chills, Other Eyes: No: Diploplia, Blurred Vision, Visual changes, Pain, Photophobia HENT: No: Headaches, Vertigo, Lightheadedness Cardiovascular: No: Irregular Rhythm, Chest Pain or Discomfort, Palpitations, Tachycardia, Syncope, Varicosities, Edema, Cyanosis Respiratory: No: Cough, Short of Breath, Other Gastrointestinal: Abdominal Pain, No: Nausea, Vomiting, Diarrhea Genitourinary: No: Decreased Urinary Output, Oliguria Musculoskeletal: No: Limited ROM, Weakness, Cramping, Edema, Pain Skin: No Rash, No Itching, No Dryness, No Lumps, No Change in Pigmentation, No Change in Nails, No Alopecia, No Lesions Neurologic: No: Weakness, Dizziness, Syncope, Focal Abnormalities, Coordination Problem, Headache, Slurred Speech, Seizures Psychiatric: No: Depression, Suicidal Ideations, Homicidal Ideation Endocrine: No: Heat Intolerance, Cold Intolerance, Polydipsia, Polyuria, Other Physical Exam Narrative GENERAL: Well-nourished, well-developed patient. SKIN: Warm and dry. HEAD: Normocephalic and atraumatic. EYES: No scleral icterus. No injection or drainage. ENT: No nasal drainage noted. Mucous membranes pink. Airway patent. NECK: Supple, trachea midline. No JVD. CARDIOVASCULAR: Regular rate and rhythm without murmurs, gallops, or rubs. RESPIRATORY: Breath sounds equal bilaterally. No accessory muscle use. BREASTS: Bilateral exam showed no masses , no retractions, no nipple discharge. ABDOMEN/GI: Abdomen soft, non-tender, bowel sounds present, no rebound, no guarding Gravid to [28-] weeks size Fundal Height: [-28] GENITOURINARY: External Genitalia: intact and normal in appearance BUS glands: [-] Cervix: [Posterior-] Dilatation: [-Closed] Effacement: [-] Thick Station: [-3] ] Membranes: [intact ] Uterine Contractions: [-none] FHT's: Category: [1-] Baseline: [-133] Reactive: [-yes] Variability: [mod-] Decels: [-none] EXTREMITIES: No cyanosis or edema. BACK: Nontender without obvious deformity. No CVA tenderness. NEUROLOGICAL: Awake and alert. Motor and sensory grossly within normal limits. Five out of 5 muscle strength in all muscle groups. Normal speech. Data Data Labs Urine dipstick shows large amount of blood otherwise negative and the from her history patient's had blood in her urine throughout her MDM Interpretation(s) Patient is 31-year-old black female 28 weeks presents planning of lower abdominal pain and low back pain mostly exacerbated with movement walking sitting laying on her side laying flat on her back, denies bleeding or leakage, heart rate tracing is reactive and no contractions on monitor, urinalysis shows large blood on dipstick but no other abnormalities and apparently she's had blood in her urine throughout her according to the patient, patient's cervix is closed thick and high Plan Patient's received a liter of IV fluid for hydration she refuses pain medication , plan to discharge patient home to bedrest heating pad or hot bath, by mouth Tylenol liberally for pain, increase her by mouth liquids, and follow-up with Dr. Jameson for similar symptoms Diagnosis Diagnosis: Primary Impression: 28 weeks gestation of Additional Impressions: Abdominal pain during in third trimester Hematuria Disposition: 01 DISCHARGE HOME Condition: Stable Ad Mustafa II, MD Dec 02, 2016 03:41
[2016-12-02 04:16] LABS: AUTOMATED NEUTROPHIL # 4.1 TH/MM3 (1.8-7.7); BASOPHIL % 0.5 % (0.0-2.0); EOSINOPHIL # 0.1 TH/MM3 (0-0.4); EOSINOPHIL % 1.9 % (0.0-4.0); HEMATOCRIT 32.7 % (35.0-46.0); HEMO FLAGS DIFF FINAL; LYMPH % 31.4 % (9.0-44.0); LYMPHOCYTE # 2.2 TH/MM3 (1.0-4.8); MEAN CELL VOLUME 82.3 FL (80.0-100.0); MEAN CORPUSCULAR HEMOGLOBIN 26.8 PG (27.0-34.0); MEAN CORPUSCULAR HGB CONC 32.6 % (32.0-36.0); MONO % 7.5 % (0.0-8.0); NEUT % 58.7 % (16.0-70.0); PLATELET COUNT 214 TH/MM3 (150-450); RED BLOOD COUNT 3.97 MIL/MM3 (4.00-5.30); RED CELL DISTRIBUTION WIDTH 14.8 % (11.6-17.2); WHITE BLOOD COUNT 7.1 TH/MM3 (4.0-11.0)
[2016-12-02 04:30] LABS: BLOOD, URINE MOD (NEG); COMMENT (UR) CULT NOT INDICATED; CULTURE IF INDICATED CULT NOT INDICATED; GLUCOSE,URINE NEG (NEG); KETONE, URINE NEG (NEG); NITRITE,URINE NEG (NEG); PH, URINE 6.5 (5.0-8.5); SQUAMOUS EPITHELIAL CELL URINE 2 /hpf (0-5); URINE COLOR YELLOW (YELLW/STRAW)
[2016-12-02 04:44] LABS: ALT (GPT) 14 U/L (10-53); ANION GAP 8 MEQ/L (5-15); AST (GOT) 7 U/L (15-37); BICARBONATE 25.5 MEQ/L (21.0-32.0); BLOOD UREA NITROGEN 7 MG/DL (7-18); CHLORIDE 105 MEQ/L (98-107); GLOMERULAR FILTRATION RATE 139 ML/MIN (>89); POTASSIUM 3.7 MEQ/L (3.5-5.1); SODIUM (NA) 138 MEQ/L (136-145)
[2016-12-02 04:47] LABS: ALKALINE PHOSPHATASE 90 U/L (45-117); TOTAL BILIRUBIN ADULT 0.2 MG/DL (0.2-1.0)
[2016-12-02] MEDS ORDERED: TERBUTALINE INJ 1 MG/ML AMP SQ PRN (07:00)
== END 2016-12-02 14:48 | disposition home or self-care (01) ==
LOC: HOBED 02:23 → H2EA 05:50 → UNDOADMIN 05:50 → HOBED 14:48
DX: O26.893 Other specified pregnancy related conditions, third trimester (principal); R10.30 Lower abdominal pain, unspecified; R31.9 Hematuria, unspecified; Z3A.28 28 weeks gestation of pregnancy
CPT/HCPCS: 80053; 81001; 85025; 96372; 99284; J3105

== ENCOUNTER 2017-02-18 08:19 | Inpatient (IN) | payer OTHER ==
[~2017-02-18] VITALS: Ht 170.2 cm; Wt 121.0 kg
[2017-02-18] VITALS (55 sets, daily range): BP systolic 85–144; BP diastolic 21–89; PULSE 73–226; RESP 1–20; TEMP 98.3–98.6
[2017-02-18] MEDS ORDERED: LACTATED RINGER'S 1000 ML INJ 1,000 ML IV PRN (09:21)
[2017-02-18] MEDS ORDERED: LACTATED RINGER'S 1000 ML INJ 1,000 ML IV SCH (09:21)
--- NOTE | 2017-02-18 09:26 | PD.LABORPN ---
Subjective Subjective doing well, in labor induction 39 2/7 weeks Objective Objective Pelvic Exam: Cervix: [-] Dilatation: 3 Effacement: 70 Station: [-] Presentation: VTX Membranes: AROM Uterine Contractions: irregular FHT's: Category: 1 Baseline: [-] Reactive: [-] Variability: [-] Decels: [-] Weeks Gestation: 39 Gest Age Assessed Date: Feb 18, 2017 Gest Age Assessed Time: 09:19 Pt started active labor?: Yes Active labor start date: Feb 18, 2017 Active labor start time: 09:19 Medical induction of labor?: No Artificial rupture of membrane: Yes Artificial ROM date: Feb 18, 2017 Artifical ROM time: 09:19 Assessment/Plan Problem List: (1) 39 weeks gestation of ICD Codes: Z3A.39 - 39 weeks gestation of Ritesh Dubon MD Feb 18, 2017 09:26
[2017-02-18] MEDS ORDERED: OXYTOCIN 30 UNITS-500ML PREMIX 500 ML IV SCH ×2 (09:30→15:30)
[2017-02-18] MEDS ORDERED: MINERAL OIL 10 ML VIAL TOPICAL PRN (09:30)
[2017-02-18] MEDS ORDERED: SODIUM CHLORID 0.9% 500 ML INJ 500 ML IV PRN (09:30)
[2017-02-18] MEDS ORDERED: LIDOCAINE HCL 1% 50 ML VIAL I-DERMAL PRN (09:30)
[2017-02-18] MEDS ORDERED: LIDOCAINE HCL 1% 50 ML VIAL INFIL PRN (09:30)
[2017-02-18] MEDS ORDERED: CITRIC ACID-SODIUM CITRATE LIQ 30 ML UDC PO SCH (09:30)
[2017-02-18] MEDS ORDERED: OXYTOCIN 30 UNITS-500ML PREMIX 500 ML IV ONE (09:30)
[2017-02-18] MEDS ORDERED: SODIUM CHLOR 0.9% 1000 ML INJ 1,000 ML IV PRN (09:41)
[2017-02-18 09:54] LABS: BASOPHIL % 0.3 % (0.0-2.0); EOSINOPHIL # 0.1 TH/MM3 (0-0.4); EOSINOPHIL % 1.6 % (0.0-4.0); HEMATOCRIT 31.5 % (35.0-46.0); HEMO FLAGS DIFF FINAL; LYMPHOCYTE # 2.1 TH/MM3 (1.0-4.8); MEAN CELL VOLUME 76.4 FL (80.0-100.0); MEAN CORPUSCULAR HEMOGLOBIN 24.6 PG (27.0-34.0); MEAN CORPUSCULAR HGB CONC 32.2 % (32.0-36.0); MONO % 8.3 % (0.0-8.0); NEUT % 58.8 % (16.0-70.0); PLATELET COUNT 176 TH/MM3 (150-450); RED BLOOD COUNT 4.12 MIL/MM3 (4.00-5.30); RED CELL DISTRIBUTION WIDTH 16.5 % (11.6-17.2); WHITE BLOOD COUNT 6.7 TH/MM3 (4.0-11.0)
[2017-02-18 10:07] LABS: BACTERIA, URINE MANY /hpf; BLOOD, URINE TRACE (NEG); COMMENT (UR) CULTURE INDICATED; CULTURE IF INDICATED CULTURE INDICATED; GLUCOSE,URINE NEG (NEG); KETONE, URINE NEG (NEG); MUCUS URINE FEW /lpf (OCC); NITRITE,URINE NEG (NEG); PH, URINE 6.5 (5.0-8.5); SQUAMOUS EPITHELIAL CELL URINE 45 /hpf (0-5); URINE COLOR YELLOW (YELLW/STRAW)
[2017-02-18] MEDS ORDERED: fentaNYL 2MCG-BUPIV 0.125% INJ 100 ML ONE (12:15)
[2017-02-18] MEDS ORDERED: ePHEDrine/NS 25 MG/5 ML SYR ONE (12:15)
[2017-02-18] MEDS ORDERED: NO SYSTEM NARCOTICS PRN (13:30)
[2017-02-18] MEDS ORDERED: fentaNYL 2MCG-BUPIV 0.125% 100 ML EPIDURAL SCH (13:30)
[2017-02-18] MEDS ORDERED: ePHEDrine/NS 25 MG/5 ML SYR IV PUSH PRN (13:30)
[2017-02-18] MEDS ORDERED: DO NOT ADMINISTER ANTICOAGULANTS PRN (13:30)
[2017-02-18] MEDS ORDERED: BUPIVACAINE/EPINEPHRINE 0.25% PF 10 ML VIAL ONE (13:52)
--- NOTE | 2017-02-18 15:27 | PD.OB.DELI ---
Weeks gestation: 39 Gest age assessed date: Feb 18, 2017 Gest age assessed time: 09:19 Pt started active labor?: Yes Active labor start date: Feb 18, 2017 Active labor start time: : Medical induction of labor?: No Artificial rupture of membrane: Yes Artificial ROM date: Feb 18, 2017 Artifical ROM time: 09:19 Anesthesia: Epidural (did not work) Episiotomy: None Vaginal Delivery: Normal (slght shoulder delay) Presentation: Occiput anterior Nuchal Cord: None Delayed cord clamping (45 sec): Yes : Male, Single Delivery date: Feb 18, 2017 Delivery time: 15:00 One Minute : 8 Five Minute : 9 Weight: 8# 13 oz Placenta: Spontaneous delivery, Intact, 3 vessel cord Laceration: Perineal laceration, 2 deg Repair: Chromic running Estimated blood loss: 300 Ritesh Dubon MD Feb 18, 2017 15:27
[2017-02-18] MEDS ORDERED: ONDANSETRON ODT 4 MG TAB PO PRN (15:30)
[2017-02-18] MEDS ORDERED: BENZOCAINE 20% TOPICAL SPRAY 60 ML CAN TOPICAL PRN (15:30)
[2017-02-18] MEDS ORDERED: WITCH HAZEL 50%/GLYCERIN 12.5% 40 PAD JAR TOPICAL PRN (15:30)
[2017-02-18] MEDS ORDERED: ALUMINUM/MAGNESIUM/SIMETH 30 ML CUP PO PRN (15:30)
[2017-02-18] MEDS ORDERED: ACETAMINOPHEN 325 MG TAB PO PRN (15:30)
[2017-02-18] MEDS ORDERED: ZOLPIDEM TARTRATE 5 MG TAB PO PRN (15:30)
[2017-02-18] MEDS ORDERED: SODIUM CHLORIDE 0.9% FLUSH 10 ML FLUSH IV FLUSH PRN (15:30)
--- NOTE | 2017-02-18 15:33 | HHI.HP ---
HPI Chief Complaint induction 39 weeks Date Seen: Feb 18, 2017 Time Seen: 10:00 Travel History International Travel<30 Days: No Contact w/Intl Traveler<30Days: No Known Affected Area: No History of Present Illness HPI 31 yo here for induction. Doing well Weeks Gestation: 39 Para: 2 : 3 History Past Medical History Medical History: Denies Significant Hx Obstetric History Obstetric History x2 Past Surgical History Narrative Surgical none Family History Family History: Negative Social History Alcohol Use: No Tobacco Use: No Substance Abuse: No Allergies-Medications (Allergen,Severity, Reaction): Coded Allergies: meperidine (Unverified Allergy, Severe, severe teeth chattering, 10/24/16) Uncoded Allergies: NSAIDS (Allergy, Intermediate, Nausea/Vomiting, 06/13/13) Home Meds Active Scripts Albuterol 8.5 GM Inh (Proair Hfa 8.5 GM Inh) 90 Mcg/Act Aer, 2 PUFF INH Q4-6H Y for SHORTNESS OF BREATH, #1 INHALER 108 mcg/actuation Prov:Alyssia Lopez MD 10/09/16 Prednisone (Prednisone) 20 Mg Tab, 40 MG PO DAILY for 4 Days, TAB Prov:Alyssia Lopez MD 10/09/16 Cephalexin (Keflex) 500 Mg Cap, 500 MG PO Q12H for Infection for 7 Days, CAP 0 Refills Prov:Elza Cordoba 09/10/16 Ondansetron (Zofran) 4 Mg Tab, 4 MG PO Q6HR Y for NAUSEA OR VOMITING, #20 TAB 0 Refills Prov:Ian Wynn MD 07/18/16 Nitrofurantoin Monohydrate Macrocrystals (Macrobid) 100 Mg Cap, 100 MG PO BID for Infection for 7 Days, CAP 0 Refills Prov:Ian Wynn MD 07/18/16 Reported Medications Vit-Iron Carbonyl ( Plus Iron 29-1 mg) 1 Tab Tab, 1 TAB PO DAILY for Nutritional Supplement, #30 TAB 0 Refills 07/18/16 Review of Systems Except as stated in HPI: all other systems reviewed are Neg Physical Exam Vital Signs Date Time Temp Pulse Resp B/P (MAP) Pulse Ox O2 Delivery O2 Flow Rate FiO2 02/18/17 14:31 98 129/89 (102) 12/10/17 14:30 91 02/18/17 14:25 97 02/18/17 14:20 96 02/18/17 14:15 99 02/18/17 14:05 89 02/18/17 14:04 91 123/66 (85) 02/18/17 14:01 84 126/45 (72) 02/18/17 14:00 86 02/18/17 13:59 20 02/18/17 13:56 94 144/75 (98) 02/18/17 13:50 82 02/18/17 13:45 95 02/18/17 13:40 89 02/18/17 13:35 83 02/18/17 13:31 82 118/77 (91) 02/18/17 13:30 81 02/18/17 13:25 85 02/18/17 13:21 83 117/57 (77) 02/18/17 13:20 83 02/18/17 13:15 87 02/18/17 13:11 84 122/65 (84) 02/18/17 13:10 85 02/18/17 13:06 85 122/69 (86) 02/18/17 13:05 82 02/18/17 13:01 81 115/79 (91) 02/18/17 13:00 82 02/18/17 12:56 73 125/81 (96) 02/18/17 12:55 76 02/18/17 12:53 98.3 18 02/18/17 12:52 105/82 (90) 02/18/17 12:52 76 02/18/17 12:49 82 124/61 (82) 02/18/17 12:47 119 113/21 (51) 02/18/17 12:45 99 02/18/17 11:30 16 02/18/17 11:27 90 127/78 (94) 02/18/17 11:07 16 02/18/17 11:06 226 121/82 (95) 02/18/17 10:32 82 113/57 (75) 02/18/17 10:15 16 02/18/17 10:10 92 131/50 (77) Narrative GENERAL: Well-nourished, well-developed patient. SKIN: Warm and dry. HEAD: Normocephalic and atraumatic. EYES: No scleral icterus. No injection or drainage. ENT: No nasal drainage noted. Mucous membranes pink. Airway patent. NECK: Supple, trachea midline. No JVD. CARDIOVASCULAR: Regular rate and rhythm without murmurs, gallops, or rubs. RESPIRATORY: Breath sounds equal bilaterally. No accessory muscle use. BREASTS: Bilateral exam showed no masses , no retractions, no nipple discharge. ABDOMEN/GI: Abdomen soft, non-tender, bowel sounds present, no rebound, no guarding Gravid to 40 weeks size Fundal Height: [-] GENITOURINARY: External Genitalia: intact and normal in appearance BUS glands: [-] Cervix: [-] Dilatation: 2-3 Effacement: 70 Station: [-] Presentation: [-] Membranes: AROM Uterine Contractions: [-] FHT's: Category: 1 Baseline: [-] Reactive: [-] Variability: [-] Decels: [-] EXTREMITIES: No cyanosis or edema. BACK: Nontender without obvious deformity. No CVA tenderness. NEUROLOGICAL: Awake and alert. Motor and sensory grossly within normal limits. Five out of 5 muscle strength in all muscle groups. Normal speech. Caprini VTE Risk Assessment Caprini VTE Risk Assessment: No/Low Risk (score <= 1) Caprini Risk Assessment Model Point Value = 1 Point Value = 2 Point Value = 3 Point Value = 5 Age 41-60 Minor surgery BMI > 25 kg/m2 Swollen legs Varicose veins or History of unexplained or recurrent spontaneous Oral contraceptives or hormone replacement Sepsis (< 1 month) Serious lung disease, including pneumonia (< 1 month) Abnormal pulmonary function Acute myocardial infarction Congestive heart failure (< 1 month) History of inflammatory bowel disease Medical patient at bed rest Age 61-74 Arthroscopic surgery Major open surgery (> 45 min) Laparoscopic surgery (> 45 min) Malignancy Confined to bed (> 72 hours) Immobilizing plaster cast Central venous access Age >= 75 History of VTE Family history of VTE Factor V Leiden Prothrombin 83103H Lupus anticoagulant Anticardiolipin antibodies Elevated serum homocysteine Heparin-induced thrombocytopenia Other congenital or acquired thrombophilia Stroke (< 1 month) Elective arthroplasty Hip, pelvis, or leg fracture Acute spinal cord injury (< 1 month) Prophylaxis Regimen Total Risk Factor Score Risk Level Prophylaxis Regimen 0-1 Low Early ambulation 2 Moderate Order ONE of the following: *Sequential Compression Device (SCD) *Heparin 5000 units SQ BID 3-4 Higher Order ONE of the following medications: *Heparin 5000 units SQ TID *Enoxaparin/Lovenox 40 mg SQ daily (WT < 150 kg, CrCl > 30 mL/min) *Enoxaparin/Lovenox 30 mg SQ daily (WT < 150 kg, CrCl > 10-29 mL/min) *Enoxaparin/Lovenox 30 mg SQ BID (WT < 150 kg, CrCl > 30 mL/min) AND/OR *Sequential Compression Device (SCD) 5 or more Highest Order ONE of the following medications: *Heparin 5000 units SQ TID (Preferred with Epidurals) *Enoxaparin/Lovenox 40 mg SQ daily (WT < 150 kg, CrCl > 30 mL/min) *Enoxaparin/Lovenox 30 mg SQ daily (WT < 150 kg, CrCl > 10-29 mL/min) *Enoxaparin/Lovenox 30 mg SQ BID (WT < 150 kg, CrCl > 30 mL/min) AND *Sequential Compression Device (SCD) Data Data Vital Signs Reviewed: Yes Orders Orders Admit To Inpatient (02/18/17 ) Code Status (02/18/17:) Vital Signs (Adult) .Per protocol (02/18/17:21) Heart (02/18/17:) Amnioinfusion (02/18/17:) Urinary Catheter Management .ONCE (02/18/17 09:21) Lactated Ringer's 1000 Ml Inj (Lr 1000 M (02/18/17 09:21) Lactated Ringer's 1000 Ml Inj (Lr 1000 M (02/18/17 09:21) Sodium Chlorid 0.9% 500 Ml Inj (Ns 500 M (02/18/17 09:30) Sodium Chlor 0.9% 1000 Ml Inj (Ns 1000 M (02/18/17 09:41) Lidocaine 1% Inj (50 Ml) (Xylocaine 1% I (02/18/17 09:30) Citric Acid-Sodium Citrate Liq (Bicitra (02/18/17 09:30) Fentanyl Inj (Fentanyl Inj) (02/18/17 09:30) Fentanyl Inj (Fentanyl Inj) (02/18/17 09:30) Complete Blood Count With Diff (02/18/17:21) Hold Clot (02/18/17:) Abo/Rh Blood Type (02/18/17:) Urinalysis - C+S If Indicated (02/18/17:21) Drug Screen, Random Urine (02/18/17:) Resp Oxygen Non Rebreathe Mask (02/18/17 ) ^ Epidural / Intrathecal Infus (02/18/17:21) Oxytocin 30 Units-500ml Premix (Pitocin (02/18/17:30) Lidocaine 1% Inj (50 Ml) (Xylocaine 1% I (02/18/17:30) Light Mineral Oil (Muri-Lube Oil) (02/18/17:30) Inpatient Certification (02/18/17 ) Specimen To Be Collected PRN (02/18/17:) Specimen To Be Collected PRN (02/18/17:) ^ Non Stress Test (02/18/17:) Response To Medication .Post New Med Administration, Reaction (02/18/17:22) ^ Discontinue Medication (02/18/17:) Oxytocin 30 Units-500ml Premix (Pitocin (02/18/17:30) Urine Culture (02/18/17 08:40) Fentanyl 2mcg-Bupiv 0.125% Inj (Fentanyl (02/18/17 12:15) Ephedrine/Ns 25 Mg/5 Ml Syr (Ephedrine/N (02/18/17 12:15) Misc Nursing Information (02/18/17 13:30) Misc Nursing Information (02/18/17 13:30) Fentanyl Inj (Fentanyl Inj) (02/18/17 13:30) Fentanyl 2mcg-Bupiv 0.125% Inj (Fentanyl (02/18/17 13:30) Ephedrine/Ns 25 Mg/5 Ml Syr (Ephedrine/N (02/18/17 13:30) Bupivacaine-Epi Pf 0.25% Inj (Sensorcain (02/18/17 13:52) Vital Signs (Adult) .QSHIFT (02/18/17:22) Activity Oob Ad Arlene (02/18/17:22) Ice / Cold Pack PRN (02/18/17 15:22) Discontinue Iv (02/18/17 15:22) Sitz Bath PRN (02/18/17:) ^ Massage (02/18/17:) ^ Rhogam (02/18/17 15:) Urinary Catheter Management .PRN (02/18/17 15:22) Diet Regular Basic (02/18/17 Dinner) Sodium Chloride 0.9% Flush (Ns Flush) (02/18/17 21:00) Sodium Chloride 0.9% Flush (Ns Flush) (02/18/17 15:30) Oxytocin 30 Units-500ml Premix (Pitocin (02/18/17 15:30) Acetaminophen (Tylenol) (02/18/17 15:30) Ibuprofen (Motrin) (02/18/17 15:30) Oxycodone-Acetamin 5-325 Mg (Percocet (02/18/17 15:30) Oxycodone-Acetamin 5-325 Mg (Percocet (02/18/17 15:30) Benzocaine 20% Top Spr (Americaine 20% T (02/18/17 15:30) Witch Kari-Glycerin Pad (Tucks Pads) (02/18/17 15:30) Docusate Sodium-Senna (Nikki-Colace) (02/18/17 15:30) Zolpidem (Ambien) (02/18/17 15:30) Wmntejc-Dopcy-Aiceygy Inj (M-M-R Ii Inj) (02/18/17 16:00) Ezpe-Cie-Lxqgmx (Booster) Inj (Boostrix (02/18/17 16:00) Al-Mag Hy-Si 40-40-4 Mg/Ml Liq (Mag-Al P (02/18/17 15:30) Ondansetron Odt (Zofran Odt) (02/18/17 15:30) Pantoprazole (Protonix) (02/18/17 15:30) Group B Strep: Negative Labs Laboratory Tests Test 02/18/17 08:40 White Blood Count 6.7 Red Blood Count 4.12 Hemoglobin 10.2 Hematocrit 31.5 Mean Corpuscular Volume 76.4 Mean Corpuscular Hemoglobin 24.6 Mean Corpuscular Hemoglobin Concent 32.2 Red Cell Distribution Width 16.5 Platelet Count 176 Mean Platelet Volume 10.1 Neutrophils (%) (Auto) 58.8 Lymphocytes (%) (Auto) 31.0 Monocytes (%) (Auto) 8.3 Eosinophils (%) (Auto) 1.6 Basophils (%) (Auto) 0.3 Neutrophils # (Auto) 4.0 Lymphocytes # (Auto) 2.1 Monocytes # (Auto) 0.6 Eosinophils # (Auto) 0.1 Basophils # (Auto) 0.0 CBC Comment DIFF FINAL Differential Comment Urine Color YELLOW Urine Turbidity HAZY Urine pH 6.5 Urine Specific Branch 1.020 Urine Protein TRACE Urine Glucose (UA) NEG Urine Ketones NEG Urine Occult Blood TRACE Urine Nitrite NEG Urine Bilirubin NEG Urine Urobilinogen LESS THAN 2.0 Urine Leukocyte Esterase LARGE Urine RBC 9 Urine WBC 10 Urine Squamous Epithelial Cells 45 Urine Bacteria MANY Urine Mucus FEW Microscopic Urinalysis Comment CULTURE INDICATED Urine Opiates Screen NEG Urine Barbiturates Screen NEG Urine Amphetamines Screen NEG Urine Benzodiazepines Screen NEG Urine Cocaine Screen NEG Urine Cannabinoids Screen NEG Date/Time Source Procedure Growth Status 02/18/17 08:40 Urine Clean Catch Urine Culture Pending Received Assessment/Plan Problem List: (1) 39 weeks gestation of ICD Codes: Z3A.39 - 39 weeks gestation of Plan: pitocin induction Ritesh Dubon MD Feb 18, 2017 15:33
[2017-02-18] MEDS: PANTOPRAZOLE SOD 40 MG DELAYED RELEASE TAB PO SCH (15:43)
[2017-02-18] MEDS: IBUPROFEN 800 MG TAB PO PRN ×3 (15:44→23:59)
[2017-02-18] MEDS ORDERED: MEASLES, MUMPS, RUBELLA VACCINE 0.5 ML VIAL SQ ONE (16:00)
[2017-02-18] MEDS ORDERED: DIPHTH/TETANUS/ACEL PERTUSSIS (BOOSTER) 0.5 ML VIAL/PFS IM ONE (16:00)
[2017-02-18] MEDS: oxyCODONE/ACETAMINOPHEN 5 MG/325 MG TAB PO PRN ×2 (17:52→22:59)
[2017-02-18] MEDS ORDERED: SODIUM CHLORIDE 0.9% FLUSH 10 ML FLUSH IV FLUSH SCH (21:00)
[2017-02-18] MEDS: DOCUSATE SODIUM 50 MG/SENNA 8.6 MG TAB PO PRN (22:59)
[2017-02-19 07:20] VITALS: BP 144/81; PULSE 76; RESP 20; TEMP 98
[2017-02-19] MEDS: oxyCODONE/ACETAMINOPHEN 5 MG/325 MG TAB PO PRN ×3 (08:01→21:51)
[2017-02-19] MEDS: PANTOPRAZOLE SOD 40 MG DELAYED RELEASE TAB PO SCH (08:01)
[2017-02-19] MEDS: IBUPROFEN 800 MG TAB PO PRN ×2 (08:01→16:07)
--- NOTE | 2017-02-19 08:37 | HHI.OB ---
Subjective Post Day: 1 Remarks doing well Objective Vitals/I&O Vital Signs Date Time Temp Pulse Resp B/P (MAP) Pulse Ox O2 Delivery O2 Flow Rate FiO2 02/19/17 07:20 98.0 76 20 144/81 (102) 02/18/17 19:45 119/51 (73) 02/18/17 19:45 98.6 83 18 02/18/17 17:05 101 107/68 (81) 02/18/17 17:01 116 85/53 (64) 02/18/17 16:50 1 02/18/17 16:46 96 117/41 (66) 02/18/17 16:31 89 118/62 (80) 02/18/17 16:16 88 129/63 (85) 02/18/17 16:01 78 116/61 (79) 02/18/17 15:50 88 02/18/17 15:45 97/79 (85) 02/18/17 15:35 16 02/18/17 15:31 105 95/53 (67) 02/18/17 15:21 96 113/71 (85) 02/18/17 15:20 98.4 96 20 113/71 (85) 02/18/17 14:31 98 129/89 (102) 02/18/17 14:30 91 02/18/17 14:25 97 02/18/17 14:20 96 02/18/17 14:15 99 02/18/17 14:05 89 02/18/17 14:04 91 123/66 (85) 02/18/17 14:01 84 126/45 (72) 02/18/17 14:00 86 02/18/17 13:59 20 02/18/17 13:56 94 144/75 (98) 02/18/17 13:50 82 02/18/17 13:45 95 02/18/17 13:40 89 02/18/17 13:35 83 02/18/17 13:31 82 118/77 (91) 02/18/17 13:30 81 02/18/17 13:25 85 02/18/17 13:21 83 117/57 (77) 02/18/17 13:20 83 02/18/17 13:15 87 02/18/17 13:11 84 122/65 (84) 02/18/17 13:10 85 02/18/17 13:06 85 122/69 (86) 02/18/17 13:05 82 02/18/17 13:01 81 115/79 (91) 02/18/17 13:00 82 02/18/17 12:56 73 125/81 (96) 02/18/17 12:55 76 02/18/17 12:53 98.3 18 02/18/17 12:52 105/82 (90) 02/18/17 12:52 76 02/18/17 12:49 82 124/61 (82) 02/18/17 12:47 119 113/21 (51) 02/18/17 12:45 99 02/18/17 11:30 16 02/18/17 11:27 90 127/78 (94) 02/18/17 11:07 16 02/18/17 11:06 226 121/82 (95) 02/18/17 10:32 82 113/57 (75) 02/18/17 10:15 16 02/18/17 10:10 92 131/50 (77) Objective Remarks GENERAL: Well-nourished, well-developed patient. ABDOMEN/GI: Abdomen soft, non-tender. Fundus: Firm, non-tender at umbilicus. GENITOURINARY: Light to moderate bleeding. EXTREMITIES: No cyanosis or edema, non-tender, without signs of DVT. Medications and IVs Current Medications Medications (Trade) Dose Ordered Sig/[place] Route Start Time Stop Time Status Last Admin (NS Flush) 2 ml BID IV FLUSH 02/18/17 21:00 (NS Flush) 2 ml UNSCH PRN IV FLUSH 02/18/17 15:30 (Tylenol) 650 mg Q4H PRN PO 02/18/17 15:30 (Motrin) 800 mg Q8H PRN PO 02/18/17 15:30 02/19/17 08:01 (Percocet 5-325 Mg) 1 tab Q4H PRN PO 02/18/17 15:30 02/18/17 22:59 (Percocet 5-325 Mg) 2 tab Q4H PRN PO 02/18/17 15:30 02/19/17 08:01 (Americaine 20% Top Spr) 1 spray Q4H PRN TOPICAL 02/18/17 15:30 (Tucks Pads) 1 applic QID PRN TOPICAL 02/18/17 15:30 02/19/17 00:02 (Nikki-Colace) 2 tab Q12H PRN PO 02/18/17 15:30 02/18/17 22:59 (Ambien) 5 mg HS PRN PO 02/18/17 15:30 (Mag-Al Plus Susp Liq) 15 ml Q8H PRN PO 02/18/17 15:30 (Zofran Odt) 4 mg Q6H PRN PO 02/18/17 15:30 (Protonix) 40 mg DAILY PO 02/18/17 15:30 02/19/17 08:01 Assessment/Plan Problem List: (1) 39 weeks gestation of ICD Codes: Z3A.39 - 39 weeks gestation of Plan: pitocin induction (2) Spontaneous vaginal delivery ICD Codes: O80 - Encounter for full-term uncomplicated delivery Status: Acute Plan: Ritesh Bruce MD Feb 19, 2017 08:37
[2017-02-19] MEDS ORDERED: OXYC1TAB63 PO (08:39)
--- NOTE | 2017-02-19 08:40 | HHI.DCPOC ---
Discharge Care Plan Diagnosis: (1) Spontaneous vaginal delivery Report Symptoms to Your Doctor -Temperature above 100.5 degrees -Redness, of incision or excessive or foul smelling drainage -Unusual pain or calf pain -Increased vaginal bleeding -Painful or difficulty urinating -Feelings of extreme sadness or anxiety after 2 weeks Goals to Promote Your Health * To prevent worsening of your condition and complications * To maintain your health at the optimal level Directions to Meet Your Goals Take your medications as prescribed Follow your dietary instruction Follow activity as directed Ensure plenty of rest for recovery Drink fluids for hydration Keep your appointments as scheduled Take your immunizations and boosters as scheduled If your symptoms worsen call your PCP, if no PCP go to Urgent Care Center or Emergency Room Smoking is Dangerous to Your Health. Avoid second hand smoke Call the 24-hour crisis hotline for domestic abuse at Ritesh Dubon MD Feb 19, 2017 08:40
--- NOTE | 2017-02-19 08:42 | HHI.DS ---
Admission Date Feb 18, 2017 at 08:19 Discharge Date: Feb 19, 2017 Admitting Diagnosis Diagnosis: (1) Spontaneous vaginal delivery Diagnosis: Principal ICD Codes: O80 - Encounter for full-term uncomplicated delivery Status: Acute Delivery Date: Feb 18, 2017 Vaginal Delivery: Normal : Male, Single Brief History 31 yo here for induction. Doing well Hospital Course doing well. now ready for dc home Pt Condition on Discharge: Good Discharge Disposition: Discharge Home Discharge Instructions Diet Instructions: As Tolerated, No Restrictions Activities You Can Perform: Regular-No Restrictions, Pelvic Rest Activities to Avoid: Driving for 24 hrs Follow up Referrals: D[facility] TRIPPER - 2 Weeks @ [facility] with Ritesh Dubon MD New Medications: Oxycodone HCl/Acetaminophen (Oxycodone-Acetaminophen 5-325) 5 Mg-325 Mg Tablet 1 TAB PO Q4H PRN for PAIN SCALE 3 TO 5, #20 TAB 0 Refills Continued Medications: Albuterol 8.5 GM Inh (Proair Hfa 8.5 GM Inh) 90 Mcg/Act Aer 2 PUFF INH Q4-6H PRN for SHORTNESS OF BREATH, #1 INHALER 108 mcg/actuation Vit-Iron Carbonyl ( Plus Iron 29-1 mg) 1 Tab Tab 1 TAB PO DAILY for Nutritional Supplement, #30 TAB 0 Refills Discontinued Medications: Cephalexin (Keflex) 500 Mg Cap 500 MG PO Q12H for Infection for 7 Days, CAP 0 Refills Nitrofurantoin Monohydrate Macrocrystals (Macrobid) 100 Mg Cap 100 MG PO BID for Infection for 7 Days, CAP 0 Refills Ondansetron (Zofran) 4 Mg Tab 4 MG PO Q6HR PRN for NAUSEA OR VOMITING, #20 TAB 0 Refills Prednisone (Prednisone) 20 Mg Tab 40 MG PO DAILY for 4 Days, TAB Ritesh Dubon MD Feb 19, 2017 08:42
[2017-02-20] MEDS: IBUPROFEN 800 MG TAB PO PRN ×2 (00:03→09:07)
[2017-02-20 08:00] VITALS: BP 138/66; PULSE 80; RESP 16; TEMP 98.2
[2017-02-20] MEDS: DOCUSATE SODIUM 50 MG/SENNA 8.6 MG TAB PO PRN (09:07)
[2017-02-20] MEDS: oxyCODONE/ACETAMINOPHEN 5 MG/325 MG TAB PO PRN (09:07)
[2017-02-20] MEDS: PANTOPRAZOLE SOD 40 MG DELAYED RELEASE TAB PO SCH (09:07)
--- NOTE | 2017-02-20 10:22 | HHI.OB ---
Subjective Post Day: 2 Remarks doing well Objective Vitals/I&O Vital Signs Date Time Temp Pulse Resp B/P (MAP) Pulse Ox O2 Delivery O2 Flow Rate FiO2 02/20/17 08:00 98.2 80 16 138/66 (90) Objective Remarks GENERAL: Well-nourished, well-developed patient. ABDOMEN/GI: Abdomen soft, non-tender. Fundus: Firm, non-tender at umbilicus. GENITOURINARY: Light to moderate bleeding. EXTREMITIES: No cyanosis or edema, non-tender, without signs of DVT. Medications and IVs Current Medications Medications (Trade) Dose Ordered Sig/[place] Route Start Time Stop Time Status Last Admin (NS Flush) 2 ml BID IV FLUSH 02/18/17 21:00 (NS Flush) 2 ml UNSCH PRN IV FLUSH 02/18/17 15:30 (Tylenol) 650 mg Q4H PRN PO 02/18/17 15:30 (Motrin) 800 mg Q8H PRN PO 02/18/17 15:30 02/20/17 09:07 (Percocet 5-325 Mg) 1 tab Q4H PRN PO 02/18/17 15:30 02/19/17 21:51 (Percocet 5-325 Mg) 2 tab Q4H PRN PO 02/18/17 15:30 02/20/17 09:07 (Americaine 20% Top Spr) 1 spray Q4H PRN TOPICAL 02/18/17 15:30 (Tucks Pads) 1 applic QID PRN TOPICAL 02/18/17 15:30 02/19/17 00:02 (Nikki-Colace) 2 tab Q12H PRN PO 02/18/17 15:30 02/20/17 09:07 (Ambien) 5 mg HS PRN PO 02/18/17 15:30 (Mag-Al Plus Susp Liq) 15 ml Q8H PRN PO 02/18/17 15:30 (Zofran Odt) 4 mg Q6H PRN PO 02/18/17 15:30 (Protonix) 40 mg DAILY PO 02/18/17 15:30 02/20/17 09:07 Assessment/Plan Problem List: (1) 39 weeks gestation of ICD Codes: Z3A.39 - 39 weeks gestation of Plan: pitocin induction (2) Spontaneous vaginal delivery ICD Codes: O80 - Encounter for full-term uncomplicated delivery Status: Acute Plan: mo Ritesh Gonzalez MD Feb 20, 2017 10:22
== END 2017-02-20 12:25 | disposition home or self-care (01) | DRG 775 ==
LOC: H2EB 08:19 → H1EA 17:24
PROVIDERS: ADMIT Obstetrics & Gynecology; ATTEND Obstetrics & Gynecology
PROC: 10E0XZZ Delivery of Products of Conception, External Approach (ICD-10-PCS; principal; 2017-02-18)
PROC: 0KQM0ZZ Repair Perineum Muscle, Open Approach (ICD-10-PCS; 2017-02-18)
PROC: 10907ZC Drainage of Amniotic Fluid, Therapeutic from Products of Conception, Via Natural or Artificial Opening (ICD-10-PCS; 2017-02-18)
PROC: 3E0P3VZ Introduction of Hormone into Female Reproductive, Percutaneous Approach (ICD-10-PCS; 2017-02-18)
PROC: 3E0R3BZ Introduction of Anesthetic Agent into Spinal Canal, Percutaneous Approach (ICD-10-PCS; 2017-02-18)
PROC: 00HU33Z Insertion of Infusion Device into Spinal Canal, Percutaneous Approach (ICD-10-PCS; 2017-02-18)
DX: O75.89 Other specified complications of labor and delivery (principal); O70.1 Second degree perineal laceration during delivery; Z37.0 Single live birth; Z3A.39 39 weeks gestation of pregnancy
CPT/HCPCS: 80307; 81001; 85025; 87086; 87641; 90715; J2590; J7120

== ENCOUNTER 2017-06-08 12:59 | Emergency (ER) | payer OTHER ==
[~2017-06-08] VITALS: Ht 170.2 cm; Wt 110.0 kg
[~2017-06-08 12:59] MED LIST changes: -CEPH-460 PO; -MACR100C2 PO; +OXYC1TAB63 PO; -PRED20 PO; -ZOFR4TAB PO
[2017-06-08 13:06] VITALS: BP 134/74; PULSE 98; RESP 16; TEMP 98.4; O2SAT 100
--- NOTE | 2017-06-08 13:26 | PD ---
HPI Chief Complaint: Pain: Acute or Chronic Time Seen by Provider: 13:11 Travel History International Travel<30 days: No Contact w/Intl Traveler<30days: No Traveled to known affect area: No History of Present Illness HPI Patient is currently 3 months , she states that throughout the entire she developed bilateral knee pain as well as bilateral lower back pain , which she rated as a 7 out of 10, again during . Currently her lower back pain is at about a 3 out of 10, worsened by activity, and her knee pain has also been 3 out of 10 worse with walking or any weightbearing activity. Patient is able to weight-bear. Patient does not have any lateralizing weakness. Patient also denies having any numbness or tingling to lower extremities, also denies having any type of incontinence whether there is fecal or urinary. Patient also denies any saddle area numbness. Patient states allergy to Demerol, and adverse event to NSAIDs (patient noted that she would have hematemesis whenever she was on NSAIDs) Past medical history significant for asthma, hiatal hernia, endometriosis, GERD , ovarian cyst, anemia, ulcer disease. PFSH Past Medical History Anemia: Yes Asthma: Yes (Childhood) Heart Rhythm Problems: No Cancer: No Cardiac Catheterization: No Cardiovascular Problems: No High Cholesterol: No Congestive Heart Failure: No Diabetes: No Diminished Hearing: No GERD: Yes Glaucoma: No Hepatitis: No Hiatal Hernia: Yes Heparin Induced Thrombocytopen: No Hypertension: No Reproductive: Yes (DIFFICULTIES CONCEIVING) Respiratory: Yes (asthma) Immunizations Current: Yes Myocardial Infarction: No Thyroid Disease: No Tetanus Vaccination: < 5 Years Influenza Vaccination: No ?: Not : 4 Para: 2 Miscarriage: 1 : 0 Ovarian Cysts: Yes Dilation and Curettage (D&C): Yes Past Surgical History Abdominal Surgery: Yes (09/01/08,"laparoscopy discovery of cervix,piece of endometriosis removed") Coronary Artery Bypass Graft: No Gynecologic Surgery: Yes (Removal of uterine polyps 05/27/13. BREAST LUMPECTOMY 2011) Pacemaker: No Other Surgery: Yes (ENDOSCOPY, COLONOSCOPY) Social History Alcohol Use: No Tobacco Use: No Substance Use: No Allergies-Medications (Allergen,Severity, Reaction): Coded Allergies: meperidine (Unverified Allergy, Severe, severe teeth chattering, 06/08/17) Uncoded Allergies: NSAIDS (Allergy, Intermediate, Nausea/Vomiting, 06/13/13) Reported Meds & Prescriptions Reported Meds & Active Scripts Active Ultram (Tramadol HCl) 50 Mg Tab 50 Mg PO Q8H PRN Review of Systems General / Constitutional: No: Fever Eyes: No: Visual changes HENT: No: Headaches Cardiovascular: No: Chest Pain or Discomfort Respiratory: No: Shortness of Breath Gastrointestinal: No: Abdominal Pain Genitourinary: No: Dysuria Musculoskeletal: Positive: Pain (Low back pain, bilateral knee pain) Skin: No Rash Neurologic: No: Weakness Psychiatric: No: Depression Endocrine: No: Polydipsia Hematologic/Lymphatic: No: Easy Bruising Physical Exam Narrative GENERAL: SKIN: Warm and dry. HEAD: Atraumatic. Normocephalic. EYES: Pupils equal and round. No scleral icterus. No injection or drainage. ENT: No nasal bleeding or discharge. Mucous membranes pink and moist. NECK: Trachea midline. No JVD. CARDIOVASCULAR: Regular rate and rhythm. RESPIRATORY: No accessory muscle use. Clear to auscultation. Breath sounds equal bilaterally. GASTROINTESTINAL: Abdomen soft, non-tender, nondistended. MUSCULOSKELETAL: Extremities without clubbing, cyanosis, or edema. No obvious deformities. Bilateral knee pain does not have any anterior or posterior drawer sign. No tenderness to palpation over lateral collateral ligament or medial collateral ligament. No point tenderness over patella. No point tenderness over tibial apophysis. Negative straight leg raise test, negative contralateral leg raise test NEUROLOGICAL: Awake and alert. No obvious cranial nerve deficits. Motor grossly within normal limits. Five out of 5 muscle strength in the arms and legs. Normal speech. PSYCHIATRIC: Appropriate mood and affect; insight and judgment normal. Data Data Last Documented VS Orders Orders Spine, Lumbar - Ltd (Ap & Lat) (06/08/17 13:18) Ed Discharge Order (06/08/17 16:14) Tramadol (Ultram) (06/08/17 16:45) MDM Medical Decision Making Medical Screen Exam Complete: Yes Emergency Medical Condition: Yes Medical Record Reviewed: Yes Differential Diagnosis Subluxation versus dislocation versus fracture Narrative Course no evidence of fx/dislocation or subluxation as reported by radiologist Diagnosis Primary Impression: Low back pain Qualified Codes: M54.5 - Low back pain Patient Instructions: Acute Low Back Pain (ED), General Instructions Additional Instructions: Please make an appointment to follow-up with the results of MRI of your knee with Dr. PETTI Today the x-rays of her lower back did not show any evidence of slipped disc, compression fracture of part of breath, or subluxation of your vertebra Scripts Tramadol (Ultram) 50 Mg Tab 50 MG PO Q8H Y for PAIN, #15 TAB 0 Refills Prov: Jj Mckeon MD 06/08/17 Disposition: 01 DISCHARGE HOME Condition: Stable Jj Mckeon MD Jun 08, 2017 13:26
--- NOTE | 2017-06-08 14:24 | RADRPT ---
EXAM DATE/TIME: 06/08/2017 14:01 [place] COMPARISON: No previous studies available for comparison. INDICATIONS : Lower back pain, no trauma. MEDICAL HISTORY : None. SURGICAL HISTORY : None. ENCOUNTER: Initial ACUITY: 2 days PAIN SCORE: 4/10 LOCATION: Lower back, radiating down right side. FINDINGS: Two view examination was performed. There are five non-rib bearing vertebral bodies. The vertebral bodies are in normal alignment without evidence of subluxation or scoliosis. The disc spaces are juan david ntained. The pedicles are intact. Bony mineralization is normal. No fracture is identified. CONCLUSION: Unremarkable limited examination of the lumbar spine. Dallin Abreu MD on June 08, 2017 at 14:22 Board Certified Radiologist. This report was verified electronically.
[2017-06-08] MEDS ORDERED: traMADol HCL 50 MG TAB PO ONE (16:45)
[2017-06-08] MEDS ORDERED: TRAM50 PO (16:48)
== END 2017-06-08 16:52 | disposition home or self-care (01) ==
LOC: NEPD 12:59
DX: M54.5 Low back pain (principal); M25.562 Pain in left knee; M25.561 Pain in right knee
CPT/HCPCS: 72100; 99283